=== PATIENT | female | born 1960 | race Caucasian/White ===

== ENCOUNTER 2019-09-15 07:50 | Inpatient (IN) ==
[2019-09-15 08:10] LABS: Basophils # 0.1 K/mcL (0.0-0.2); Basophils % 0.6 %; Eosinophils # 0.1 K/mcL (0.0-0.6); Eosinophils % 0.8 %; Hematocrit 48.9 % (35.3-44.9); Hemoglobin 16.6 g/dL (11.5-15.4); Immature Granulocytes % 0.3 % (0-4); Lymphocytes # 1.5 K/mcL (0.6-4.6); Lymphocytes % 18.5 %; Mean Corpuscular HGB Conc 33.9 g/dL (31.6-35.5); Mean Corpuscular Hemoglobin 28.9 pg (28.0-33.3); Mean Platelet Volume 10.3 fL (9.4-12.4); Monocytes # 0.7 K/mcL (0.0-1.3); Monocytes % 8.8 %; Neutrophils # 5.6 K/mcL (1.6-8.9); Platelet Count 301 K/mcL (140-400); Red Blood Count 5.75 M/mcL (3.82-4.97); Red Cell Distribution Width 14.5 % (11.5-14.5); White Blood Count 7.9 K/mcL (4.3-11.1)
[2019-09-15 08:17] LABS: INR 1.2; Prothrombin Time 13.1 Seconds (9.4-12.1)
[2019-09-15] MEDS ORDERED: 0.9 % Sodium Chloride 500 ML ONE (09:27)
[2019-09-15] MEDS ORDERED: *HR* HYDROmorphone (PF) 1 MG/ML SYRINGE IVP ONE (11:27)
[2019-09-15] MEDS ORDERED: *HR* Promethazine 25 MG/ML VIAL IVP PRN (13:04)
[2019-09-15] MEDS ORDERED: MOM Conc 10 ML UD.LIQ PO PRN (13:04)
[2019-09-15] MEDS ORDERED: Naloxone 0.4 MG/ML INJ IVP PRN (13:04)
[2019-09-15] MEDS ORDERED: Ondansetron 4 MG/2 ML VIAL IVP PRN (13:04)
[2019-09-15] MEDS ORDERED: Mag Hydrox/Al Hydrox/Simeth 30 ML UDC PO PRN (13:04)
[2019-09-15] MEDS ORDERED: Acetaminophen 325 MG TABLET PO PRN (13:04)
[2019-09-15] MEDS ORDERED: Ergocalciferol (VIT D2) 50,000 UNIT (1.25MG) CAP PO SCH (13:15)
[2019-09-15] MEDS: Gabapentin 300 MG CAPSULE PO SCH ×2 (13:46→20:32)
[2019-09-15] MEDS: Nicotine 21 MG PATCH.TD24 TD SCH (14:30)
[2019-09-15] MEDS: traZODone 50 MG TABLET PO SCH (20:32)
[2019-09-15] MEDS: clonazePAM 1 MG TABLET PO PRN (20:32)
[2019-09-15] MEDS ORDERED: Ipratropium/Albuterol Neb 3 ML IH STA (23:04)
[2019-09-15] MEDS ORDERED: methylPREDNISolone 125 MG/2 ML VIAL IVP STA (23:04)
[2019-09-15] MEDS ORDERED: *HR* HYDROmorphone (PF) 1 MG/ML SYRINGE IVP STA (23:06)
[2019-09-16] MEDS: Ipratropium/Albuterol Neb 3 ML IH SCH ×6 (00:05→19:38)
[2019-09-16] MEDS: MethylPREDNISolone 40 MG/ML VIAL IVP SCH ×3 (04:16→21:17)
[2019-09-16 06:23] LABS: Basophils % 0.1 %; Hematocrit 44.2 % (35.3-44.9); Immature Granulocytes % 0.3 % (0-4); Lymphocytes # 0.5 K/mcL (0.6-4.6); Lymphocytes % 6.7 %; Mean Corpuscular HGB Conc 33.7 g/dL (31.6-35.5); Mean Corpuscular Hemoglobin 29.3 pg (28.0-33.3); Mean Corpuscular Volume 86.8 fL (83.0-100.0); Mean Platelet Volume 10.5 fL (9.4-12.4); Monocytes # 0.1 K/mcL (0.0-1.3); Monocytes % 0.7 %; Neutrophils # 6.3 K/mcL (1.6-8.9); Platelet Count 255 K/mcL (140-400); Red Blood Count 5.09 M/mcL (3.82-4.97); Red Cell Distribution Width 14.3 % (11.5-14.5); Segmented Neutrophils % 92.2 %; White Blood Count 6.9 K/mcL (4.3-11.1)
[2019-09-16 06:31] LABS: Hemoglobin 14.9 g/dL (11.5-15.4)
[2019-09-16 06:47] LABS: BUN/Creatinine Ratio 16 (6-26); Blood Urea Nitrogen 10 mg/dL (6-20); Calcium 9.2 mg/dL (8.6-10.3); Carbon Dioxide 27 mEq/L (23-29); Chloride 102 mEq/L (98-107); Glucose 270 mg/dL (70-105); Osmolality,Calculated 297 (280-300); Potassium 4.5 mEq/L (3.5-5.1); Sodium 139 mEq/L (136-145); eGFR For African Americans > 60 (> 60); eGFR For Non-African Americans > 60 (> 60)
[2019-09-16] MEDS ORDERED: D5% in Water 1,000 ML IVC PRN (07:56)
[2019-09-16] MEDS ORDERED: *HR* Dextrose 50 % in Water (Syg) 50 ML SYRINGE IVP PRN (07:56)
[2019-09-16] MEDS ORDERED: Dextrose Gel 15 GM/37.5 ML TUBE PO PRN ×2 (07:56)
[2019-09-16] MEDS: Gabapentin 300 MG CAPSULE PO SCH ×3 (08:34→21:17)
[2019-09-16] MEDS: Nicotine 21 MG PATCH.TD24 TD SCH (08:34)
[2019-09-16] MEDS ORDERED: Anastrozole 1 MG TABLET PO SCH (09:00)
[2019-09-16] MEDS ORDERED: Aspirin 325 MG TABLET PO SCH (09:00)
[2019-09-16] MEDS ORDERED: CeFAZolin Syr 2,000MG/20 ML 2,000 MG/20 ML SYRINGE IVPB ONE (09:43)
[2019-09-16] MEDS: Insulin LISPRO 300 UNITS/3 ML VIAL SQ SCH ×2 (13:07→16:14)
[2019-09-16] MEDS ORDERED: Insulin LISPRO 300 UNITS/3 ML VIAL SQ SCH (21:00)
[2019-09-16] MEDS: traZODone 50 MG TABLET PO SCH (21:16)
[2019-09-16] MEDS: clonazePAM 1 MG TABLET PO PRN (21:16)
[2019-09-17] MEDS: Ipratropium/Albuterol Neb 3 ML IH SCH ×6 (00:24→20:21)
[2019-09-17] MEDS: MethylPREDNISolone 40 MG/ML VIAL IVP SCH (04:25)
[2019-09-17] MEDS: Insulin LISPRO 300 UNITS/3 ML VIAL SQ SCH ×3 (07:36→21:24)
[2019-09-17] MEDS ORDERED: Lidocaine -MPF 2% 2 ML VIAL ONE (09:41)
[2019-09-17] MEDS ORDERED: Dexamethasone 4 MG/ML VIAL ONE (09:42)
[2019-09-17] MEDS ORDERED: *HR* Propofol 200 MG/20 ML VIAL IVP ONE (09:42)
[2019-09-17] MEDS ORDERED: *HR* FentaNYL (PF) 100 MCG/2 ML VIAL ONE (09:42)
[2019-09-17] MEDS ORDERED: Lidocaine HCL 4 ML Topical Solution (Laryng-O-Jet Kit Sterile Pak) TP ONE (09:42)
[2019-09-17] MEDS ORDERED: Ondansetron 4 MG/2 ML VIAL ONE (09:42)
[2019-09-17] MEDS ORDERED: *HR* Rocuronium Bromide 50 MG/5 ML VIAL ONE (09:42)
[2019-09-17] MEDS ORDERED: *HR* Succinylcholine 200 MG/10 ML VIAL IVP ONE (09:42)
[2019-09-17] MEDS ORDERED: *HR* EPINEPHrine 30 MG/30 ML MDV ONE (09:55)
[2019-09-17] MEDS ORDERED: ceFAZolin 2,000 MG in 0.9 % Sodium Chloride 100 ML IVPB ONE (10:05)
[2019-09-17] MEDS ORDERED: *HR* PHENYLEPHRINE 1,000 MCG/10 ML SYRINGE IVP ONE (10:43)
[2019-09-17] MEDS ORDERED: EPHEDrine 50 MG/ML VIAL ONE (10:49)
[2019-09-17] MEDS ORDERED: *HR* Labetalol 20 MG/4 ML SYRINGE IVP ONE (10:54)
[2019-09-17] MEDS ORDERED: Esmolol 100 MG/10 ML VIAL IVP ONE (10:55)
[2019-09-17] MEDS ORDERED: *HR* OxyCODONE Immed Rel 5 MG TABLET PO PRN (11:29)
[2019-09-17] MEDS ORDERED: *HR* HYDROmorphone (PF) 1 MG/ML SYRINGE IVP PRN (11:29)
[2019-09-17] MEDS ORDERED: Ondansetron 4 MG/2 ML VIAL IVP ONE (11:29)
[2019-09-17] MEDS ORDERED: Acetaminophen IV 1,000 MG/100 ML INFUS..BTL IVPB ONE (11:29)
[2019-09-17] MEDS ORDERED: Ringers Solution, Lactated 1,000 ML IVC SCH (11:30)
[2019-09-17] MEDS ORDERED: Dextrose Gel 15 GM/37.5 ML TUBE PO PRN ×2 (12:06)
[2019-09-17] MEDS ORDERED: Ondansetron 4 MG/2 ML VIAL IVP PRN (12:06)
[2019-09-17] MEDS ORDERED: *HR* Promethazine 25 MG/ML VIAL IVP PRN (12:06)
[2019-09-17] MEDS ORDERED: Acetaminophen 325 MG TABLET PO PRN (12:06)
[2019-09-17] MEDS ORDERED: MOM Conc 10 ML UD.LIQ PO PRN (12:06)
[2019-09-17] MEDS ORDERED: *HR* Dextrose 50 % in Water (Syg) 50 ML SYRINGE IVP PRN (12:06)
[2019-09-17] MEDS ORDERED: Mag Hydrox/Al Hydrox/Simeth 30 ML UDC PO PRN (12:06)
[2019-09-17] MEDS ORDERED: Naloxone 0.4 MG/ML INJ IVP PRN (12:06)
[2019-09-17] MEDS ORDERED: D5% in Water 1,000 ML IVC PRN (12:06)
[2019-09-17] MEDS: Cholecalciferol (D-3) 1,000 UNIT (25MCG) TABLET PO SCH (14:04)
[2019-09-17] MEDS: Nicotine 21 MG PATCH.TD24 TD SCH (14:05)
[2019-09-17] MEDS: Gabapentin 300 MG CAPSULE PO SCH ×2 (14:05→21:21)
[2019-09-17] MEDS: clonazePAM 1 MG TABLET PO PRN (21:21)
[2019-09-17] MEDS: traZODone 50 MG TABLET PO SCH (21:21)
[2019-09-18] MEDS: Ipratropium/Albuterol Neb 3 ML IH SCH ×6 (00:30→19:28)
[2019-09-18 01:46] LABS: Hematocrit 40.2 % (35.3-44.9); Hemoglobin 13.4 g/dL (11.5-15.4); Mean Corpuscular HGB Conc 33.3 g/dL (31.6-35.5); Mean Corpuscular Hemoglobin 28.2 pg (28.0-33.3); Mean Corpuscular Volume 84.6 fL (83.0-100.0); Mean Platelet Volume 10.5 fL (9.4-12.4); Platelet Count 289 K/mcL (140-400); Red Blood Count 4.75 M/mcL (3.82-4.97); Red Cell Distribution Width 14.6 % (11.5-14.5)
[2019-09-18 01:51] LABS: White Blood Count 14.3 K/mcL (4.3-11.1)
[2019-09-18 01:59] LABS: BUN/Creatinine Ratio 24 (6-26); Blood Urea Nitrogen 13 mg/dL (6-20); Calcium 9.4 mg/dL (8.6-10.3); Carbon Dioxide 29 mEq/L (23-29); Chloride 100 mEq/L (98-107); Glucose 136 mg/dL (70-105); Osmolality,Calculated 284 (280-300); Potassium 3.8 mEq/L (3.5-5.1); Sodium 136 mEq/L (136-145); eGFR For African Americans > 60 (> 60); eGFR For Non-African Americans > 60 (> 60)
[2019-09-18 08:54] LABS: Estimated Average Glucose 169 mg/dl
[2019-09-18] MEDS: Cholecalciferol (D-3) 1,000 UNIT (25MCG) TABLET PO SCH (09:45)
[2019-09-18] MEDS: Anastrozole 1 MG TABLET PO SCH (09:45)
[2019-09-18] MEDS: Gabapentin 300 MG CAPSULE PO SCH ×3 (09:45→22:32)
[2019-09-18] MEDS: Nicotine 21 MG PATCH.TD24 TD SCH (09:46)
[2019-09-18] MEDS: Aspirin 325 MG TABLET PO SCH (09:46)
[2019-09-18] MEDS: Insulin LISPRO 300 UNITS/3 ML VIAL SQ SCH ×4 (09:46→22:34)
[2019-09-18] MEDS: traZODone 50 MG TABLET PO SCH (22:32)
[2019-09-18] MEDS: clonazePAM 1 MG TABLET PO PRN (22:33)
[2019-09-19] MEDS: Ipratropium/Albuterol Neb 3 ML IH SCH ×6 (00:22→19:20)
[2019-09-19 02:05] LABS: Hematocrit 42.6 % (35.3-44.9); Hemoglobin 13.5 g/dL (11.5-15.4); Mean Corpuscular HGB Conc 31.7 g/dL (31.6-35.5); Mean Corpuscular Volume 88.4 fL (83.0-100.0); Mean Platelet Volume 10.5 fL (9.4-12.4); Platelet Count 260 K/mcL (140-400); Red Blood Count 4.82 M/mcL (3.82-4.97); Red Cell Distribution Width 14.5 % (11.5-14.5); White Blood Count 8.2 K/mcL (4.3-11.1)
[2019-09-19 02:22] LABS: BUN/Creatinine Ratio 27 (6-26); Blood Urea Nitrogen 16 mg/dL (6-20); Calcium 8.9 mg/dL (8.6-10.3); Carbon Dioxide 30 mEq/L (23-29); Chloride 104 mEq/L (98-107); Glucose 145 mg/dL (70-105); Osmolality,Calculated 294 (280-300); Potassium 3.7 mEq/L (3.5-5.1); Sodium 140 mEq/L (136-145); eGFR For African Americans > 60 (> 60); eGFR For Non-African Americans > 60 (> 60)
[2019-09-19] MEDS: Aspirin 325 MG TABLET PO SCH (07:58)
[2019-09-19] MEDS: Cholecalciferol (D-3) 1,000 UNIT (25MCG) TABLET PO SCH (07:58)
[2019-09-19] MEDS: Anastrozole 1 MG TABLET PO SCH (07:58)
[2019-09-19] MEDS: Gabapentin 300 MG CAPSULE PO SCH ×3 (07:58→20:53)
[2019-09-19] MEDS: Nicotine 21 MG PATCH.TD24 TD SCH (07:58)
[2019-09-19] MEDS: Insulin LISPRO 300 UNITS/3 ML VIAL SQ SCH ×4 (08:00→20:52)
[2019-09-19] MEDS ORDERED: predniSONE 20 MG TABLET PO SCH (09:00)
[2019-09-19] MEDS: clonazePAM 1 MG TABLET PO PRN (20:53)
[2019-09-19] MEDS: traZODone 50 MG TABLET PO SCH (20:53)
[2019-09-20] MEDS: Ipratropium/Albuterol Neb 3 ML IH SCH ×7 (00:09→23:14)
[2019-09-20 02:24] LABS: BUN/Creatinine Ratio 23 (6-26); Blood Urea Nitrogen 12 mg/dL (6-20); Calcium 9.3 mg/dL (8.6-10.3); Carbon Dioxide 28 mEq/L (23-29); Chloride 102 mEq/L (98-107); Glucose 165 mg/dL (70-105); Osmolality,Calculated 291 (280-300); Potassium 3.7 mEq/L (3.5-5.1); Sodium 139 mEq/L (136-145); eGFR For African Americans > 60 (> 60); eGFR For Non-African Americans > 60 (> 60)
[2019-09-20] MEDS: Gabapentin 300 MG CAPSULE PO SCH ×3 (08:58→19:38)
[2019-09-20] MEDS: Nicotine 21 MG PATCH.TD24 TD SCH (08:58)
[2019-09-20] MEDS: Anastrozole 1 MG TABLET PO SCH (08:58)
[2019-09-20] MEDS: Cholecalciferol (D-3) 1,000 UNIT (25MCG) TABLET PO SCH (08:58)
[2019-09-20] MEDS: Aspirin 325 MG TABLET PO SCH (08:58)
[2019-09-20] MEDS: Insulin LISPRO 300 UNITS/3 ML VIAL SQ SCH ×4 (08:59→19:38)
[2019-09-20] MEDS: traZODone 50 MG TABLET PO SCH (19:37)
[2019-09-20] MEDS: clonazePAM 1 MG TABLET PO PRN (19:37)
[2019-09-20] MEDS ORDERED: *HR* OxyCODONE Immed Rel 5 MG TABLET PO ONE (21:26)
[2019-09-21 01:16] LABS: Basophils % 0.5 %; Eosinophils # 0.4 K/mcL (0.0-0.6); Eosinophils % 4.2 %; Hematocrit 41.5 % (35.3-44.9); Hemoglobin 14.1 g/dL (11.5-15.4); Immature Granulocytes % 0.4 % (0-4); Lymphocytes # 2.9 K/mcL (0.6-4.6); Lymphocytes % 34.4 %; Mean Corpuscular Hemoglobin 28.5 pg (28.0-33.3); Mean Platelet Volume 10.5 fL (9.4-12.4); Monocytes # 0.7 K/mcL (0.0-1.3); Monocytes % 8.2 %; Neutrophils # 4.5 K/mcL (1.6-8.9); Platelet Count 290 K/mcL (140-400); Red Blood Count 4.94 M/mcL (3.82-4.97); Red Cell Distribution Width 14.1 % (11.5-14.5); Segmented Neutrophils % 52.3 %; White Blood Count 8.5 K/mcL (4.3-11.1)
[2019-09-21 01:32] LABS: BUN/Creatinine Ratio 27 (6-26); Blood Urea Nitrogen 15 mg/dL (6-20); Calcium 9.1 mg/dL (8.6-10.3); Carbon Dioxide 28 mEq/L (23-29); Chloride 103 mEq/L (98-107); Glucose 170 mg/dL (70-105); Osmolality,Calculated 291 (280-300); Potassium 3.8 mEq/L (3.5-5.1); Sodium 138 mEq/L (136-145); eGFR For African Americans > 60 (> 60); eGFR For Non-African Americans > 60 (> 60)
[2019-09-21] MEDS: Ipratropium/Albuterol Neb 3 ML IH SCH ×6 (03:48→23:29)
[2019-09-21] MEDS: Anastrozole 1 MG TABLET PO SCH (08:49)
[2019-09-21] MEDS: Nicotine 21 MG PATCH.TD24 TD SCH (08:49)
[2019-09-21] MEDS: Gabapentin 300 MG CAPSULE PO SCH ×3 (08:49→20:16)
[2019-09-21] MEDS: Aspirin 325 MG TABLET PO SCH (08:49)
[2019-09-21] MEDS: Cholecalciferol (D-3) 1,000 UNIT (25MCG) TABLET PO SCH (08:49)
[2019-09-21] MEDS: Insulin LISPRO 300 UNITS/3 ML VIAL SQ SCH ×4 (08:50→21:40)
[2019-09-21] MEDS: traZODone 50 MG TABLET PO SCH (20:16)
[2019-09-21] MEDS: clonazePAM 1 MG TABLET PO PRN (20:16)
[2019-09-22] MEDS: Ipratropium/Albuterol Neb 3 ML IH SCH ×2 (03:43→07:23)
[2019-09-22 04:35] LABS: BUN/Creatinine Ratio 28 (6-26); Blood Urea Nitrogen 17 mg/dL (6-20); Calcium 9.3 mg/dL (8.6-10.3); Carbon Dioxide 27 mEq/L (23-29); Chloride 102 mEq/L (98-107); Glucose 147 mg/dL (70-105); Osmolality,Calculated 294 (280-300); Potassium 3.8 mEq/L (3.5-5.1); Sodium 140 mEq/L (136-145); eGFR For African Americans > 60 (> 60); eGFR For Non-African Americans > 60 (> 60)
[2019-09-22] MEDS: Gabapentin 300 MG CAPSULE PO SCH ×3 (08:20→20:03)
[2019-09-22] MEDS: Cholecalciferol (D-3) 1,000 UNIT (25MCG) TABLET PO SCH (08:20)
[2019-09-22] MEDS: Insulin LISPRO 300 UNITS/3 ML VIAL SQ SCH ×3 (08:20→17:54)
[2019-09-22] MEDS: Nicotine 21 MG PATCH.TD24 TD SCH (08:20)
[2019-09-22] MEDS: Aspirin 325 MG TABLET PO SCH (08:20)
[2019-09-22] MEDS: Anastrozole 1 MG TABLET PO SCH (08:20)
[2019-09-22] MEDS: traZODone 50 MG TABLET PO SCH (20:03)
[2019-09-22] MEDS: clonazePAM 1 MG TABLET PO PRN (23:51)
[2019-09-23 01:21] LABS: BUN/Creatinine Ratio 28 (6-26); Blood Urea Nitrogen 15 mg/dL (6-20); Calcium 9.4 mg/dL (8.6-10.3); Carbon Dioxide 26 mEq/L (23-29); Chloride 105 mEq/L (98-107); Glucose 142 mg/dL (70-105); Osmolality,Calculated 287 (280-300); Potassium 3.9 mEq/L (3.5-5.1); Sodium 137 mEq/L (136-145); eGFR For African Americans > 60 (> 60); eGFR For Non-African Americans > 60 (> 60)
[2019-09-23] MEDS: Gabapentin 300 MG CAPSULE PO SCH ×3 (07:58→21:11)
[2019-09-23] MEDS: Cholecalciferol (D-3) 1,000 UNIT (25MCG) TABLET PO SCH (07:58)
[2019-09-23] MEDS: Aspirin 325 MG TABLET PO SCH (07:58)
[2019-09-23] MEDS: Anastrozole 1 MG TABLET PO SCH (07:58)
[2019-09-23] MEDS: Insulin LISPRO 300 UNITS/3 ML VIAL SQ SCH ×5 (08:01→21:21)
[2019-09-23] MEDS ORDERED: *HR* Midazolam HCl 2 MG/2 ML VIAL ONE (11:15)
[2019-09-23] MEDS ORDERED: *HR* Propofol 200 MG/20 ML VIAL IVP ONE (11:16)
[2019-09-23] MEDS ORDERED: Ondansetron 4 MG/2 ML VIAL ONE (11:17)
[2019-09-23] MEDS ORDERED: Dexamethasone 4 MG/ML VIAL ONE (11:17)
[2019-09-23] MEDS ORDERED: Lidocaine -MPF 2% 2 ML VIAL ONE (11:17)
[2019-09-23] MEDS ORDERED: *HR* Succinylcholine 200 MG/10 ML VIAL IVP ONE (11:17)
[2019-09-23] MEDS ORDERED: *HR* Rocuronium Bromide 50 MG/5 ML VIAL ONE (11:17)
[2019-09-23] MEDS ORDERED: *HR* OxyCODONE Immed Rel 5 MG TABLET PO PRN (11:20)
[2019-09-23] MEDS ORDERED: Ondansetron 4 MG/2 ML VIAL IVP ONE (11:20)
[2019-09-23] MEDS ORDERED: Lidocaine Jelly 6ml 1 APPL/6 ML JEL.PF.APP ONE (11:21)
[2019-09-23] MEDS ORDERED: Ringers Solution, Lactated 1,000 ML IVC SCH ×2 (11:30→14:23)
[2019-09-23] MEDS ORDERED: Albumin Human 5% 25.0 GM/500 ML VIAL ONE (12:02)
[2019-09-23] MEDS ORDERED: *HR* FentaNYL (PF) 100 MCG/2 ML VIAL ONE (12:16)
[2019-09-23] MEDS ORDERED: *HR* Labetalol 20 MG/4 ML SYRINGE IVP ONE (13:19)
[2019-09-23] MEDS: *HR* HYDROmorphone (PF) 1 MG/ML SYRINGE IVP PRN ×2 (13:32→13:40)
[2019-09-23] MEDS ORDERED: *HR* Dextrose 50 % in Water (Syg) 50 ML SYRINGE IVP PRN (14:23)
[2019-09-23] MEDS ORDERED: Ondansetron 4 MG/2 ML VIAL IVP PRN (14:23)
[2019-09-23] MEDS ORDERED: Mag Hydrox/Al Hydrox/Simeth 30 ML UDC PO PRN (14:23)
[2019-09-23] MEDS ORDERED: D5% in Water 1,000 ML IVC PRN (14:23)
[2019-09-23] MEDS ORDERED: *HR* HYDROmorphone (PF) 1 MG/ML SYRINGE IVP PRN (14:23)
[2019-09-23] MEDS ORDERED: MOM Conc 10 ML UD.LIQ PO PRN (14:23)
[2019-09-23] MEDS ORDERED: Dextrose Gel 15 GM/37.5 ML TUBE PO PRN ×2 (14:23)
[2019-09-23] MEDS ORDERED: Naloxone 0.4 MG/ML INJ IVP PRN (14:23)
[2019-09-23] MEDS ORDERED: CeFAZolin Syr 2,000MG/20 ML 2,000 MG/20 ML SYRINGE IVPB ONE (15:00)
[2019-09-23] MEDS ORDERED: Gabapentin 300 MG CAPSULE PO SCH (15:00)
[2019-09-23] MEDS: *HR* Heparin 5,000 UNIT/ML VIAL SQ SCH ×2 (15:05→21:10)
[2019-09-23] MEDS: *HR* HYDROcodone/Acet 5/325 mg TABLET PO PRN ×2 (15:18→21:09)
[2019-09-23] MEDS: 0.9 % Sodium Chloride 1,000 ML IVC SCH (15:22)
[2019-09-23] MEDS: Ketorolac 15 MG/ML VIAL IVP SCH (17:16)
[2019-09-23] MEDS: traZODone 50 MG TABLET PO SCH (21:11)
[2019-09-23] MEDS: clonazePAM 1 MG TABLET PO PRN (21:11)
[2019-09-24] MEDS: Ketorolac 15 MG/ML VIAL IVP SCH ×4 (00:36→18:00)
[2019-09-24 01:33] LABS: Basophils % 0.1 %; Hematocrit 41.2 % (35.3-44.9); Hemoglobin 13.4 g/dL (11.5-15.4); Immature Granulocytes % 0.4 % (0-4); Lymphocytes # 1.2 K/mcL (0.6-4.6); Lymphocytes % 8.6 %; Mean Corpuscular HGB Conc 32.5 g/dL (31.6-35.5); Mean Corpuscular Hemoglobin 28.6 pg (28.0-33.3); Mean Corpuscular Volume 87.8 fL (83.0-100.0); Mean Platelet Volume 10.8 fL (9.4-12.4); Monocytes # 1.1 K/mcL (0.0-1.3); Monocytes % 8.2 %; Neutrophils # 11.3 K/mcL (1.6-8.9); Platelet Count 297 K/mcL (140-400); Red Blood Count 4.69 M/mcL (3.82-4.97); Red Cell Distribution Width 13.9 % (11.5-14.5); Segmented Neutrophils % 82.7 %
[2019-09-24 01:38] LABS: White Blood Count 13.6 K/mcL (4.3-11.1)
[2019-09-24 01:51] LABS: BUN/Creatinine Ratio 29 (6-26); Blood Urea Nitrogen 20 mg/dL (6-20); Calcium 9.4 mg/dL (8.6-10.3); Carbon Dioxide 25 mEq/L (23-29); Chloride 103 mEq/L (98-107); Glucose 258 mg/dL (70-105); Osmolality,Calculated 291 (280-300); Potassium 4.7 mEq/L (3.5-5.1); Sodium 135 mEq/L (136-145); eGFR For African Americans > 60 (> 60); eGFR For Non-African Americans > 60 (> 60)
[2019-09-24] MEDS: *HR* HYDROcodone/Acet 5/325 mg TABLET PO PRN ×4 (02:56→21:31)
[2019-09-24] MEDS: clonazePAM 1 MG TABLET PO PRN ×3 (03:03→21:39)
[2019-09-24] MEDS: *HR* Heparin 5,000 UNIT/ML VIAL SQ SCH ×3 (05:54→21:29)
[2019-09-24] MEDS: 0.9 % Sodium Chloride 1,000 ML IVC SCH (05:58)
[2019-09-24] MEDS: Insulin LISPRO 300 UNITS/3 ML VIAL SQ SCH ×4 (07:46→21:40)
[2019-09-24] MEDS: Cholecalciferol (D-3) 1,000 UNIT (25MCG) TABLET PO SCH (07:47)
[2019-09-24] MEDS: Anastrozole 1 MG TABLET PO SCH (07:48)
[2019-09-24] MEDS: Gabapentin 300 MG CAPSULE PO SCH ×3 (07:48→21:31)
[2019-09-24] MEDS: Aspirin 325 MG TABLET PO SCH (07:48)
[2019-09-24] MEDS: Acetaminophen 325 MG TABLET PO PRN ×2 (11:27→16:40)
[2019-09-24] MEDS: traZODone 50 MG TABLET PO SCH (21:31)
[2019-09-25 00:57] LABS: Basophils % 0.4 %; Eosinophils # 0.3 K/mcL (0.0-0.6); Eosinophils % 2.7 %; Hematocrit 36.9 % (35.3-44.9); Hemoglobin 12.4 g/dL (11.5-15.4); Immature Granulocytes % 0.4 % (0-4); Lymphocytes # 2.3 K/mcL (0.6-4.6); Mean Corpuscular HGB Conc 33.6 g/dL (31.6-35.5); Mean Corpuscular Hemoglobin 28.5 pg (28.0-33.3); Mean Corpuscular Volume 84.8 fL (83.0-100.0); Mean Platelet Volume 10.3 fL (9.4-12.4); Monocytes # 1.2 K/mcL (0.0-1.3); Neutrophils # 7.1 K/mcL (1.6-8.9); Platelet Count 267 K/mcL (140-400); Red Blood Count 4.35 M/mcL (3.82-4.97); Red Cell Distribution Width 13.8 % (11.5-14.5); Segmented Neutrophils % 64.5 %
[2019-09-25 01:18] LABS: BUN/Creatinine Ratio 41 (6-26); Blood Urea Nitrogen 23 mg/dL (6-20); Carbon Dioxide 28 mEq/L (23-29); Chloride 104 mEq/L (98-107); Glucose 177 mg/dL (70-105); Osmolality,Calculated 294 (280-300); Potassium 4.4 mEq/L (3.5-5.1); Sodium 138 mEq/L (136-145); eGFR For African Americans > 60 (> 60); eGFR For Non-African Americans > 60 (> 60)
[2019-09-25] MEDS: Ketorolac 15 MG/ML VIAL IVP SCH ×4 (03:54→17:44)
[2019-09-25] MEDS: *HR* HYDROcodone/Acet 5/325 mg TABLET PO PRN ×4 (03:58→20:02)
[2019-09-25] MEDS: *HR* Heparin 5,000 UNIT/ML VIAL SQ SCH ×3 (05:11→20:04)
[2019-09-25] MEDS: Anastrozole 1 MG TABLET PO SCH (07:45)
[2019-09-25] MEDS: Gabapentin 300 MG CAPSULE PO SCH ×3 (07:45→20:02)
[2019-09-25] MEDS: Aspirin 325 MG TABLET PO SCH (07:45)
[2019-09-25] MEDS: Cholecalciferol (D-3) 1,000 UNIT (25MCG) TABLET PO SCH (07:45)
[2019-09-25] MEDS: Acetaminophen 325 MG TABLET PO PRN (07:45)
[2019-09-25] MEDS: Insulin LISPRO 300 UNITS/3 ML VIAL SQ SCH ×4 (07:46→20:04)
[2019-09-25] MEDS: clonazePAM 1 MG TABLET PO PRN (17:44)
[2019-09-25] MEDS: traZODone 50 MG TABLET PO SCH (20:02)
[2019-09-26] MEDS: Ketorolac 15 MG/ML VIAL IVP SCH ×5 (00:01→23:40)
[2019-09-26 01:23] LABS: BUN/Creatinine Ratio 37 (6-26); Blood Urea Nitrogen 19 mg/dL (6-20); Carbon Dioxide 27 mEq/L (23-29); Chloride 102 mEq/L (98-107); Glucose 152 mg/dL (70-105); Osmolality,Calculated 285 (280-300); Potassium 4.2 mEq/L (3.5-5.1); Sodium 135 mEq/L (136-145); eGFR For African Americans > 60 (> 60); eGFR For Non-African Americans > 60 (> 60)
[2019-09-26] MEDS: *HR* Heparin 5,000 UNIT/ML VIAL SQ SCH ×3 (05:32→20:15)
[2019-09-26] MEDS: *HR* HYDROcodone/Acet 5/325 mg TABLET PO PRN ×5 (05:52→22:01)
[2019-09-26] MEDS: Cholecalciferol (D-3) 1,000 UNIT (25MCG) TABLET PO SCH (07:36)
[2019-09-26] MEDS: Aspirin 325 MG TABLET PO SCH (07:36)
[2019-09-26] MEDS: Insulin LISPRO 300 UNITS/3 ML VIAL SQ SCH ×4 (07:36→20:22)
[2019-09-26] MEDS: Anastrozole 1 MG TABLET PO SCH (07:36)
[2019-09-26] MEDS: Gabapentin 300 MG CAPSULE PO SCH ×3 (07:36→20:15)
[2019-09-26] MEDS: clonazePAM 1 MG TABLET PO PRN ×2 (07:42→20:13)
[2019-09-26] MEDS: traZODone 50 MG TABLET PO SCH (20:13)
[2019-09-26] MEDS: Acetaminophen 325 MG TABLET PO PRN (20:14)
[2019-09-26] MEDS: *HR* Promethazine 25 MG/ML VIAL IVP PRN (23:25)
[2019-09-26] MEDS ORDERED: Morphine Sulfate 2 MG/ML SYRINGE IVP PRN (23:33)
[2019-09-27] MEDS: *HR* Heparin 5,000 UNIT/ML VIAL SQ SCH ×3 (04:20→20:53)
[2019-09-27] MEDS: Ketorolac 15 MG/ML VIAL IVP SCH ×4 (04:21→23:19)
[2019-09-27 04:57] LABS: BUN/Creatinine Ratio 37 (6-26); Blood Urea Nitrogen 22 mg/dL (6-20); Calcium 9.2 mg/dL (8.6-10.3); Carbon Dioxide 29 mEq/L (23-29); Chloride 102 mEq/L (98-107); Glucose 167 mg/dL (70-105); Osmolality,Calculated 287 (280-300); Potassium 4.3 mEq/L (3.5-5.1); Sodium 135 mEq/L (136-145); eGFR For African Americans > 60 (> 60); eGFR For Non-African Americans > 60 (> 60)
[2019-09-27] MEDS: Insulin LISPRO 300 UNITS/3 ML VIAL SQ SCH ×4 (07:49→20:54)
[2019-09-27] MEDS: Cholecalciferol (D-3) 1,000 UNIT (25MCG) TABLET PO SCH (07:50)
[2019-09-27] MEDS: Gabapentin 300 MG CAPSULE PO SCH ×3 (07:50→20:53)
[2019-09-27] MEDS: Anastrozole 1 MG TABLET PO SCH (07:50)
[2019-09-27] MEDS: Aspirin 325 MG TABLET PO SCH (07:50)
[2019-09-27] MEDS: *HR* HYDROcodone/Acet 5/325 mg TABLET PO PRN ×3 (07:59→23:19)
[2019-09-27] MEDS: clonazePAM 1 MG TABLET PO PRN (14:30)
[2019-09-27] MEDS ORDERED: *HR* FentaNYL PATCH 12 MCG PATCH TD SCH (14:30)
[2019-09-27] MEDS: traZODone 50 MG TABLET PO SCH (20:53)
[2019-09-27] MEDS ORDERED: Insulin DETEMIR 100 UNIT/ML X5UNITS SQ SCH (21:00)
[2019-09-27] MEDS: *HR* Promethazine 25 MG/ML VIAL IVP PRN (21:09)
[2019-09-28] MEDS: Ketorolac 15 MG/ML VIAL IVP SCH (05:36)
[2019-09-28] MEDS: *HR* Heparin 5,000 UNIT/ML VIAL SQ SCH (05:36)
[2019-09-28] MEDS: Aspirin 325 MG TABLET PO SCH (07:38)
[2019-09-28] MEDS: Cholecalciferol (D-3) 1,000 UNIT (25MCG) TABLET PO SCH (07:38)
[2019-09-28] MEDS: Anastrozole 1 MG TABLET PO SCH (07:38)
[2019-09-28] MEDS: Gabapentin 300 MG CAPSULE PO SCH (07:38)
[2019-09-28] MEDS: Insulin LISPRO 300 UNITS/3 ML VIAL SQ SCH ×2 (07:38→11:18)
[2019-09-28] MEDS: *HR* HYDROcodone/Acet 5/325 mg TABLET PO PRN ×2 (07:49→13:47)
[2019-09-28 11:19] VITALS: BP 138/88
== END 2019-09-28 14:19 | disposition home or self-care (01) | DRG 163 ==
LOC: SUATTDRO → RAD 07:50 → 3BNU 12:38 → SUATTDRO 13:59 → ICNU 09-16 00:05 → 2NNU 09-16 16:36
PROVIDERS: ADMIT Student in an Organized Health Care Education/Training Program; ATTEND Internal Medicine